=== PATIENT | female | born 1990 | race Caucasian/White ===

== ENCOUNTER 2016-11-29 18:00 | Emergency (ER) | payer MEDICAID, OTHER ==
[~2016-11-29] VITALS: Ht 165.1 cm; Wt 75.0 kg
[~2016-11-29 18:00] MED LIST: LOMO PO; ZOFR4TAB3 SL
[2016-11-29 18:11] VITALS: BP 129/82; PULSE 107; RESP 20; TEMP 99.2; O2SAT 98
--- NOTE | 2016-11-29 18:16 | PD ---
HPI Chief Complaint: Injury Time Seen by Provider: 18:16 Travel History International Travel<30 days: No Contact w/Intl Traveler<30days: No Traveled to known affect area: No History of Present Illness HPI 26-year-old female came to the emergency room with history of right knee popping as she turned in the middle of her nap. Patient says that she felt that her whole body move except for the right leg below her knee and heard a pop of her right knee. She has had multiple patellar dislocations in the past that she was able to pop it back in. She was unable to do that today. She was brought in by EMS and received 6 mg of IV morphine en route. She says she feels okay if she does not move her leg. [facility] Past Medical History Narrative Medical List of her past medical history as reviewed from the nursing note. Cancer: No Cardiovascular Problems: No Diabetes: No Diminished Hearing: No Glaucoma: No Hepatitis: No Hiatal Hernia: No Hypertension: Yes (during ) Respiratory: No Immunizations Current: Yes Migraines: Yes Thyroid Disease: No : 1 Para: 1 Past Surgical History Abdominal Surgery: No Cardiac Surgery: No Ear Surgery: No Endocrine Surgery: Yes (RIGHT BERAST BIOPSY WITH benign MASS REMOVAL) Eye Surgery: No Genitourinary Surgery: No Gynecologic Surgery: Yes (pilonidal cyst) Oral Surgery: No Pacemaker: No Thoracic Surgery: No Other Surgery: Yes (PYLONIDAL CYST REMOVED) Social History Alcohol Use: No Tobacco Use: No Substance Use: No Allergies-Medications (Allergen,Severity, Reaction): Coded Allergies: No Known Allergies (Verified , 11/29/16) Comments No known drug allergies. Reported Meds & Prescriptions Reported Meds & Active Scripts Active Ibuprofen 600 Mg Tab 600 Mg PO Q6H PRN Narrative Medication List of her home medications reviewed from the nursing note. Review of Systems Except as stated in HPI: all other systems reviewed are Neg Physical Exam Narrative GENERAL: Awake, alert, moderate distress SKIN: Warm and dry. HEAD: Atraumatic. Normocephalic. EYES: Pupils equal and round. No scleral icterus. No injection or drainage. ENT: No nasal bleeding or discharge. Mucous membranes pink and moist. NECK: Trachea midline. No JVD. CARDIOVASCULAR: Regular rate and rhythm. No murmur appreciated. RESPIRATORY: No accessory muscle use. Clear to auscultation. Breath sounds equal bilaterally. GASTROINTESTINAL: Abdomen soft, non-tender, nondistended. Hepatic and splenic margins not palpable. MUSCULOSKELETAL: Right knee appears to be slightly deformed but also she has it in a flexed position and refuses to move it. There is no swelling of the knee joint. No clubbing. No cyanosis. No edema. Distal neurovascular to intact NEUROLOGICAL: Awake and alert. No obvious cranial nerve deficits. Motor grossly within normal limits. Normal speech. PSYCHIATRIC: Appropriate mood and affect; insight and judgment normal. Data Data Last Documented VS Vital Signs Date Time Temp Pulse Resp B/P Pulse Ox O2 Delivery O2 Flow Rate FiO2 11/29/16 20:19 92 20 143/94 99 11/29/16 18:55 Room Air 11/29/16 18:11 99.2 Orders Knee, Complete (4vws) (11/29/16 ) ^ Knee Immobilizer (11/29/16 19:09) Morphine Inj (Morphine Inj) (11/29/16 19:30) Crutches (11/29/16 19:33) Mandatory Outpatient Referral (11/29/16 20:31) MDM Medical Decision Making Medical Screen Exam Complete: Yes Emergency Medical Condition: Yes Medical Record Reviewed: Yes Differential Diagnosis Patellar dislocation, knee dislocation, knee strain Narrative Course 6:32 PM awaiting for the x-ray of her knee. 7:13 PM patient's knee x-ray has been read to be within normal limits. I will attempt to put her in a knee immobilizer and then discharge her home. Patient has been relayed this information. 7:30 PM patient wanted pain medication before the knee immobilizer was applied. She was given 4 mg of IV morphine in addition to the 6 mg of IV morphine she received by the paramedics en route. Procedures EKG Prior to Arrival: No Diagnosis Primary Impression: Strain of right knee Qualified Code: S86.911A - Strain of right knee, initial encounter Referrals: Devon Harp MD Additional Instructions: Please return to the ER if the condition worsens. Otherwise follow-up with the orthopedist whose name and number has been given to you. Follow-up with your primary care as well. Keep the knee immobilizer on at all times except during taking shower. Take the medication as per the prescription direction. Do not take the medication empty stomach. Med/Other Pt SpecificInfo: Prescription(s) given Scripts Ibuprofen 600 Mg [id number] Mg PO Q6H PRN (pain) #30 TAB Ref 0 Prov:Hermes Mejia MD 11/29/16 Disposition: 01 DISCHARGE HOME Condition: Stable Hermes Mejia MD Nov 29, 2016 18:16
--- NOTE | 2016-11-29 18:56 | RADRPT ---
EXAM DATE/TIME: 11/29/2016 18:43 [facility] COMPARISON: No previous studies available for comparison. INDICATIONS : Right Knee pain after twisting injury. MEDICAL HISTORY : None. SURGICAL HISTORY : None. ENCOUNTER: Initial ACUITY: 1 day PAIN SCORE: 10/10 LOCATION: Right Knee. FINDINGS: Four view examination of the right knee demonstrates no evidence of fracture or dislocation. Bony mi neralization is normal. The articular surfaces are intact. The suprapatellar soft tissues have a no rmal configuration. CONCLUSION: Intact right knee. Eris Cruz MD on November 29, 2016 at 18:55 Board Certified Radiologist. This report was verified electronically.
[2016-11-29] MEDS ORDERED: IBUP-232 PO (19:27)
[2016-11-29] MEDS ORDERED: MORPHINE SULFATE 4 MG/ML INJ IV PUSH ONE (19:30)
[2016-11-29 20:19] VITALS: BP 143/94
== END 2016-11-29 20:58 | disposition home or self-care (01) ==
LOC: NEPA 18:00
DX: S86.911A Strain of unspecified muscle(s) and tendon(s) at lower leg level, right leg, initial encounter (principal); X50.0XXA Overexertion from strenuous movement or load, initial encounter; Y93.84 Activity, sleeping
CPT/HCPCS: 73564; 96374; 99284; E0113; J2270

== ENCOUNTER 2017-05-08 20:14 | Emergency (ER) | payer BC, OTHER ==
[~2017-05-08] VITALS: Ht 167.6 cm; Wt 89.9 kg
[~2017-05-08 20:14] MED LIST changes: +IBUP-232 PO; -LOMO PO; -ZOFR4TAB3 SL
[2017-05-08 20:18] VITALS: BP 145/110; PULSE 91; RESP 18; TEMP 97.9; O2SAT 98
[2017-05-08] MEDS ORDERED: AMLO5TAB2 PO (20:36)
--- NOTE | 2017-05-08 20:40 | PD ---
HPI Chief Complaint: Headache Time Seen by Provider: 20:34 Travel History International Travel<30 days: No Contact w/Intl Traveler<30days: No Traveled to known affect area: No History of Present Illness HPI 26-year-old female presents to the emergency department by private transportation the care of family for 6 hours of headache with nausea and vomiting. Patient states she's been having similar headache intermittently for the past 6 months. Patient is followed up with her doctor as well as been referred to an promotional model for headache. Patient states she had a normal eye exam. Patient states that recently she was started on amlodipine for blood pressure elevation. Patient states she hasn't been taking medication as she has been checking her blood pressure at home and has been normal range. Patient denies fever chills photophobia phonophobia sinus pressure drainage sore throat earache neck stiffness and no report of cough congestion or chest pain. No abdominal pain. Patient did have episodes of vomiting today and unable to tolerate ibuprofen. Last period was 2 weeks ago and normal for her. Patient denies . Other family members with history of headache. Patient states headaches typically go away with just sleeping but today her headache is been persistent. Patient states she typically has vomiting. Headaches are typically left-sided and behind left eye. Patient denies any injury or trauma. Patient rates pain 8/10 in intensity. Patient is unable to identify exacerbating or alleviating factors. Patient denies any change in mentation or vision or loss of vision change in speech neck pain balance disturbance upper or lower extremity numbness tingling or weakness. Patient states headaches are gradual in onset and not thunderclap. [facility] Past Medical History Narrative Medical Hypertension, headache 6 months, ovarian cyst; pilonidal cyst excision right breast mass biopsy benign; occasional alcohol use no tobacco use; nursing notes reviewed Cancer: No Cardiovascular Problems: Yes (HTN) Diabetes: No Diminished Hearing: No Glaucoma: No Hepatitis: No Hiatal Hernia: No Hypertension: Yes (during ) Respiratory: No Immunizations Current: Yes Migraines: Yes Thyroid Disease: No ?: Not LMP: 2 WEEKS : 1 Para: 1 Ovarian Cysts: Yes (HX) Past Surgical History Abdominal Surgery: No Cardiac Surgery: No Ear Surgery: No Endocrine Surgery: Yes (RIGHT BERAST BIOPSY WITH benign MASS REMOVAL) Eye Surgery: No Genitourinary Surgery: No Gynecologic Surgery: Yes (pilonidal cyst) Oral Surgery: No Pacemaker: No Thoracic Surgery: No Other Surgery: Yes (PYLONIDAL CYST REMOVED) Social History Alcohol Use: Yes (OCCASIONALLY) Tobacco Use: No Substance Use: No Allergies-Medications (Allergen,Severity, Reaction): Coded Allergies: No Known Allergies (Verified , 05/08/17) Reported Meds & Prescriptions Reported Meds & Active Scripts Active Zofran Odt (Ondansetron Odt) 4 Mg Tab 4 Mg SL Q6HR PRN Reported Amlodipine (Amlodipine Besylate) 5 Mg Tab 5 Mg PO DAILY Review of Systems Except as stated in HPI: all other systems reviewed are Neg General / Constitutional: No: Fever, Chills Eyes: No: Diploplia, Blurred Vision, Photophobia HENT: Positive: Headaches, No: Vertigo, Lightheadedness, Neck Stiffness, Neck Pain Cardiovascular: No: Chest Pain or Discomfort Respiratory: No: Shortness of Breath Gastrointestinal: Positive: Nausea, Vomiting, No: Diarrhea, Abdominal Pain Genitourinary: No: Urgency, Frequency, Dysuria, Flank Pain Musculoskeletal: No: Myalgias, Arthralgias Skin: No Rash Neurologic: Positive: Headache, No: Weakness, Dizziness, Syncope, Focal Abnormalities, Coordination Problem, Ataxia, Change in Mentation, Slurred Speech , Paresthesia, Seizures Psychiatric: No: Anxiety Hematologic/Lymphatic: No: Lymph Node Enlargement Physical Exam Narrative GENERAL: Well-developed well-nourished female tearful and no respiratory distress; GCS 15 SKIN: Warm and dry. HEAD: Atraumatic. Normocephalic. EYES: Pupils equal and round. Extraocular muscles intact. Funduscopic exam no papilledema. No scleral icterus. No injection or drainage. ENT: No nasal bleeding or discharge. Mucous membranes pink and moist. Airway is patent. Tympanic membranes no redness no dullness to loss of landmarks. NECK: Trachea midline. No JVD. Supple no meningismus no neck rigidity. CARDIOVASCULAR: Regular rate and rhythm. RESPIRATORY: No accessory muscle use. Clear to auscultation. Breath sounds equal bilaterally. GASTROINTESTINAL: Abdomen soft, non-tender, nondistended. Hepatic and splenic margins not palpable. MUSCULOSKELETAL: Extremities without clubbing, cyanosis, or edema. No obvious deformities. NEUROLOGICAL: Awake and alert. No obvious cranial nerve deficits. Motor grossly within normal limits. Five out of 5 muscle strength in the arms and legs. DTRs 2+ symmetric bilateral upper extremities and lower extremities. No pronator drift. No limb ataxia. Sensory exam intact. Normal speech. PSYCHIATRIC: Appropriate mood and affect; insight and judgment normal. Data Data Last Documented VS Vital Signs Date Time Temp Pulse Resp B/P Pulse Ox O2 Delivery O2 Flow Rate FiO2 05/08/17 21:59 68 17 131/72 99 Room Air 05/08/17 20:[address] Brain W/O Iv Contrast(Rout) (05/08/17 ) Urinalysis - C+S If Indicated (05/08/17 20:33) Ed Urine Pregnancytest Poc (05/08/17 20:33) Sodium Chlor 0.9% 1000 Ml Inj (Ns 1000 M (05/08/17 20:45) Ondansetron Inj (Zofran Inj) (05/08/17 20:45) Diphenhydramine Inj (Benadryl Inj) (05/08/17 21:30) Prochlorperazine Inj (Compazine Inj) (05/08/17 21:30) Labs Laboratory Tests Test 05/08/17 21:20 Urine Color YELLOW Urine Turbidity SLIGHT Urine pH 7.0 Urine Specific [place] 1.012 Urine Protein NEG mg/dL Urine Glucose (UA) NEG mg/dL Urine Ketones 15 mg/dL Urine Occult Blood NEG Urine Nitrite NEG Urine Bilirubin NEG Urine Leukocyte Esterase SMALL Urine WBC 0-2 /hpf Urine Squamous Epithelial > 8 /hpf Cells Urine Amorphous Sediment FEW Urine Bacteria OCC /hpf Urine Mucus OCC /lpf Microscopic Urinalysis Comment CULT NOT INDICATED MDM Medical Decision Making Medical Screen Exam Complete: Yes Emergency Medical Condition: Yes Medical Record Reviewed: Yes Interpretation(s) POC hcg: negative UA: squamous epithelial cells; cx not indicated Last Impressions Head CT 05/08/17 0000 Signed Impressions: Service Date/Time: Monday, May 08, 2017 21:42 - CONCLUSION: Normal examination for a patient of this age. No significant change has occurred. Dinesh Alfaro MD Differential Diagnosis Cephalgia-tension versus vascular versus migrainous versus cluster versus infectious versus inflammatory versus autoimmune versus hypertensive; no fever or recent respiratory illness and headache not sudden onset thunderclap or worst ever or auditory or ataxia related--low suspicion for meningitis or SAH or acoustic neuroma/mass Narrative Course IV access obtained specimens collected and sent for resulting. Point of care test ordered, CT of brain imaging ordered, IV fluids administered along with Zofran 4 mg IV Patient continues to complain of nausea and headache; POC hcg is negative; patient administered Compazine and Benadryl CT brain w/o: no acute abnormality @ 22:18 patient re-assessed feels well; stable for outpatient management; patient's questions answered to her satisfaction along with those of parents at her bedside; encouraged to follow up with her PCP and neurology referral. 6 months of non-specific recurrent unilateral retro-orbital headache possible migraine variant. Diagnosis Primary Impression: Cephalalgia Qualified Code: R51 - Nonintractable episodic headache, unspecified headache type Referrals: Primary Care Physician 2 days Patient Instructions: General Instructions Departure Forms: Tests/Procedures, Work Release Special Instructions: no work x 1 day Additional Instructions: Increase fluid hydration Follow-up with primary care provider call office on Wednesday to schedule follow- up appointment take Zofran as prescribed as needed for nausea and/or vomiting Monitor temperature every 4 hours with thermometer May take acetaminophen/ Tylenol for fever 100.4F or greater May take ibuprofen/Advil/Motrin 800 mg as often as every 8 hours for headache or pain associated with inflammation; or may take other [id number] headache medication such as Excedrin Migraine per package directions Return to the emergency department for any concerns or change in condition Med/Other Pt SpecificInfo: Prescription(s) given Scripts Ondansetron Odt (Zofran Odt)4 Mg Tab4 Mg SL Q6HR PRN (Nausea/Vomiting) #10 TAB Ref 0 Prov:Joleen Solorzano MD 05/08/17 Disposition: 01 DISCHARGE HOME Condition: Stable Joleen Solorzano MD May 08, 2017 20:40
[2017-05-08] MEDS ORDERED: ONDANSETRON HCL 4 MG/2 ML VIAL IV PUSH ONE (20:45)
[2017-05-08] MEDS ORDERED: SODIUM CHLOR 0.9% 1000 ML INJ 1,000 ML IV ONE (20:45)
[2017-05-08] MEDS ORDERED: diphenhydrAMINE HCL 50 MG/ML VIAL IV PUSH ONE (21:30)
[2017-05-08] MEDS ORDERED: PROCHLORPERAZINE INJ 10 MG/2 ML VIAL IV PUSH ONE (21:30)
[2017-05-08 21:33] VITALS: BP 140/102; PULSE 95; RESP 20; O2SAT 99
[2017-05-08 21:48] LABS: BLOOD, URINE NEG (NEG); GLUCOSE,URINE NEG (NEG); KETONE, URINE 15 mg/dL (NEG); NITRITE,URINE NEG (NEG)
[2017-05-08 21:54] LABS: URINE COLOR YELLOW (YELLW/STRAW)
[2017-05-08 21:55] LABS: BACTERIA, URINE OCC /hpf; MUCUS URINE OCC /lpf (OCC); SQUAMOUS EPITHELIAL CELL URINE > 8 /hpf (0-5)
[2017-05-08 21:56] LABS: COMMENT (UR) CULT NOT INDICATED; CULTURE IF INDICATED CULT NOT INDICATED; WBC, URINE 0-2 /hpf (0-5)
[2017-05-08 21:59] VITALS: BP 131/72; PULSE 68; RESP 17; O2SAT 99
--- NOTE | 2017-05-08 22:02 | RADHPO ---
EXAM DATE/TIME: 05/08/2017 21:42 [facility] COMPARISON: No previous studies available for comparison. INDICATIONS : Cephalgia. RADIATION DOSE: 66.43 CTDIvol (mGy) MEDICAL HISTORY : Hypertension. Migraines. SURGICAL HISTORY : None. ENCOUNTER: Initial ACUITY: 1 day PAIN SCALE: 6/10 LOCATION: cranial TECHNIQUE: Multiple contiguous axial images were obtained of the head. Using automated exposure control and adj ustment of the mA and/or kV according to patient size, radiation dose was kept as low as reasonably a chievable to obtain optimal diagnostic quality images. FINDINGS: CEREBRUM: The ventricles are normal for age. No evidence of midline shift, mass lesion, hemorrhage or acute in farction. No extra-axial fluid collections are seen. POSTERIOR FOSSA: The cerebellum and brainstem are intact. The 4th ventricle is midline. The cerebellopontine angle i s unremarkable. EXTRACRANIAL: The visualized portion of the orbits is intact. SKULL: The calvaria is intact. No evidence of skull fracture. CONCLUSION: Normal examination for a patient of this age. No significant change has occurred. Dinesh Alfaro MD on May 08, 2017 at 21:57 Board Certified Radiologist. This report was verified electronically.
[2017-05-08] MEDS ORDERED: ZOFR4TAB3 SL (22:26)
[2017-05-08 22:50] VITALS: BP 137/70
== END 2017-05-08 22:55 | disposition home or self-care (01) ==
LOC: PHED 20:14
DX: R51 Headache (principal); R11.2 Nausea with vomiting, unspecified; I10 Essential (primary) hypertension; Z86.79 Personal history of other diseases of the circulatory system; Z86.69 Personal history of other diseases of the nervous system and sense organs
CPT/HCPCS: 70450; 81001; 84703; 96361; 96374; 96375; 99285; J0780; J1200; J2405; J7030